=== PATIENT | female | born 1985 | race Caucasian/White ===

== ENCOUNTER 2019-11-12 00:42 | Emergency (ER) | payer MEDICAID, OTHER ==
[~2019-11-12] VITALS: Ht 170.2 cm; Wt 78.1 kg
[~2019-11-12 00:42] MED LIST: TOPI50TA38 PO
--- NOTE | 2019-11-12 00:50 | PHYS DOC ---
Past History Past Medical History: Depression, Hypothyroid, Migraines, Other Past Surgical History: Other Smoking: Cigarettes Alcohol Use: None Drug Use: None General Adult HPI: HPI: 34 yo F PMH hashimotos thyroiditis w/hypothyroidism, depression, migraines and urinary incontinence s/p bladder sling 11/06 (5 days ago, on oxybutynin and hyoscyamine) presents to the ed with inability to urinate and painful lower abdominal distention. Patient states after the surgery she had a catheter placed that was removed the day after. Patient was unable to urinate for 6-1/2 hours and the catheter was put back in the same day. Catheter was removed today at 1:45 PM, Dr. Tomlinson ( urologist) reported her internal/external incisions are healing well. Urologist inserted 900 cc of solution in her bladder today and patient voided in her office. Patient states that was the last time she was able to void today. Was told that because patient is so young she might have the adverse effect of urinary retention, "sling will work too well." Next appointment is in 4 weeks. No sexually activity since surgery. Reports urinary incontinence that started at 14, made worse after 4 children. Review of systems: Denies associated fever, chills, cough, shortness of breath, dyspnea, diaphoresis, neck symptoms, headache, chest pain, abdominal pain, dysuria, hematuria, flank pain, abnormal vaginal bleeding or discharge. Allergies: Allergies: Allergies Coded Allergies Type Severity Reaction Last Updated Verified No Known Drug Allergies 07/15/13 No Physical Exam: PE: Constitutional: Well developed, well nourished, uncomfortable on arrival, instant relief with catheter placed, non-toxic appearance. [] HENT: Normocephalic, atraumatic, bilateral external ears normal, nose normal. [] Eyes: EOMI, conjunctiva normal, no discharge. [] Neck: Normal range of motion, no tenderness, supple, no stridor. [] Cardiovascular:Heart rate regular rhythm, Lungs & Thorax: Speaking in full sentences, bilateral equal chest rise [] Abdomen: Bowel sounds normal, soft, no tenderness, no masses, no pulsatile masses. [] lower pelvic incision c/d/i no dehisence Skin: Warm, dry, no erythema, no rash. [] Back: No tenderness, no CVA tenderness. [] Extremities: No tenderness, no cyanosis, no clubbing, ROM intact, no edema. [] Neurologic: Alert and oriented X 3, normal motor function, normal sensory function, Psychologic: Affect normal, judgement normal, mood normal. [] : 981 cc on bladder scan, straight cath w/1750 cc clear yellow, no sediment or pyruia/hematuria, post cath placement 190 ccs, external vaginal exam w/right labial bruises -pt reports no pain, no VB/rash/ulcer EKG: EKG: [] Radiology/Procedures: Radiology/Procedures: [] Impressions: Concern for postoperative urinary retention s/p sling for urinary incontinence. U/a w/no infection. Urine preg negative. Spoke with [facility] urology resident weapons system instrument mechanic (Randolph) who was very familiar with pts' care. Recommended ramires placement, no change in medications, Dr. Nieto' clinic will reach out to pt for followup in the next week. Patient with complete resolution of symptoms after her bladder was drained. Life-threatening processes considered during ed visit, low suspicion given hx/pe. Strict ED return precautions given for recurrence of symptoms. All of patient's questions were answered and she was stable at time of discharge. I spoken with the patient and her caregivers. I explained the patient's condition, diagnoses and treatment plan based on the information available to me at this time. I have answered the patient and her caregiver's questions and addressed any concerns. The patient and her caregivers have a good understanding of patient's diagnosis, condition and treatment plan as can be expected at this point. Vital signs have been stable. Patient's condition is stable and appropriate for discharge from the emergency department. Patient will pursue further outpatient evaluation with primary care physician or other designated or consulting physician as outlined in the discharge instructions. The patient and/or caregivers are agreeable to this plan of care and follow-up instructions have been explained in detail. The patient and/or caregivers have received these instructions in written form and have expressed an understanding of the discharge instructions. The patient and/or caregivers are aware that any significant change of condition or worsening of symptoms should prompt immediate return to this or the closest emergency department or call to 911. Course & Med Decision Making: Course & Med Decision Making Pertinent Labs and Imaging studies reviewed. (See chart for details) [] Lee Disclaimer: Dragon Disclaimer: This electronic medical record was generated, in whole or in part, using a voice recognition dictation system. Departure Departure: Impression: Primary Impression: Acute urinary retention Additional Impression: Postoperative urinary retention Disposition: 01 HOME/RESIDENCE PRIOR TO ADM Condition: STABLE Referrals: MANNIE SANTOS MD (PCP) Followup w/Dr. Etienne Beltran, urology [phone] Patient Instructions: Urinary Retention, Acute, Female Justification of Admission: Justification of Admission: Justification of Admission Dx: N/A CARMEN SARGENT DO Nov 12, 2019 00:50
[2019-11-12] MEDS ORDERED: LEVO150T5 PO (01:30)
[2019-11-12] MEDS ORDERED: SERT100T PO (01:30)
[2019-11-12] MEDS ORDERED: LORA10TA68 PO (01:30)
[2019-11-12] MEDS ORDERED: HYOS0.1222 PO (01:33)
[2019-11-12] MEDS ORDERED: OXYC5TAB4 PO (01:33)
[2019-11-12] MEDS ORDERED: OXYB5TAB10 PO (01:33)
[2019-11-12 01:55] LABS: BACTERIA,URINE FEW /HPF (0-FEW); BILIRUBIN,URINE NEG (NEG); CLARITY,URINE HAZY; COLOR,URINE STRAW; GLUCOSE,URINE NEG (NEG); NITRITE,URINE NEG (NEG); RBC,URINE OCC /HPF (0-2); SQUAMOUS EPITHELIAL CELL,UR OCC /LPF; UROBILINOGEN,URINE 0.2 mg/dL (0.2 mg/dL); WBC,URINE OCC /HPF (0-4)
[2019-11-12 02:00] VITALS: BP 115/74
[2019-11-12 02:06] LABS: U PREG PATIENT NEGATIVE (NEG)
== END 2019-11-12 02:15 | disposition home or self-care (01) ==
LOC: ER 00:42
DX: N99.89 Other postprocedural complications and disorders of genitourinary system (principal); E06.3 Autoimmune thyroiditis; E03.9 Hypothyroidism, unspecified; G43.909 Migraine, unspecified, not intractable, without status migrainosus; F32.9 Major depressive disorder, single episode, unspecified; F17.210 Nicotine dependence, cigarettes, uncomplicated
CPT/HCPCS: 51702; 81001; 81025; 99284; 99285